=== PATIENT | male | born 1955 | race Caucasian/White ===

== ENCOUNTER 2017-11-19 22:26 | Emergency (ER) | payer OTHER ==
[~2017-11-19] VITALS: Ht 177.8 cm; Wt 110.6 kg
[2017-11-19 22:34] VITALS: BP 201/91; PULSE 84; RESP 22; TEMP 98.1; O2SAT 98
[2017-11-20] MEDS ORDERED: LISI2.5T3 PO (00:20)
[2017-11-20] MEDS ORDERED: LABE100T2 PO (00:20)
[2017-11-20 00:22] VITALS: BP 167/82; PULSE 76; RESP 18; O2SAT 97
[2017-11-20] MEDS ORDERED: DOXA1TAB35 PO (00:27)
[2017-11-20] MEDS ORDERED: LISI40TA PO (00:27)
--- NOTE | 2017-11-20 01:56 | PD ---
HPI Chief Complaint: Oral / Dental Pain or Problem Time Seen by Provider: 01:44 Travel History International Travel<30 days: No Contact w/Intl Traveler<30days: No Traveled to known affect area: No History of Present Illness HPI The patient is a 62-year-old male that states he has a dental infection and tooth #31. This is been going on for 2 weeks. He called a dentist at the dentist wanted $200 and he cannot afford that right now. He states he has aching pain in that tooth and it is a 9/10. He denies any fever. The patient is on foot tonight, he states he walked from [place]. PFS Past Medical History Cardiovascular Problems: Yes ([place]) Cerebrovascular Accident: Yes Hypertension: Yes Influenza Vaccination: No ?: Not Social History Alcohol Use: No Tobacco Use: No Substance Use: No Allergies-Medications (Allergen,Severity, Reaction): Coded Allergies: amlodipine (Verified Allergy, Severe, Hives, 11/19/17) metoprolol (Verified Allergy, Severe, Hives, 11/19/17) prednisolone (Verified Allergy, Severe, Anaphylaxis, 11/19/17) Reported Meds & Prescriptions Reported Meds & Active Scripts Active Reported Doxazosin (Doxazosin Mesylate) 2 Mg Tab 2 Mg PO DAILY Lisinopril 40 Mg Tab 40 Mg PO DAILY Labetalol (Labetalol HCl) 100 Mg Tab 100 Mg PO BID Review of Systems Except as stated in HPI: all other systems reviewed are Neg Physical Exam Narrative GENERAL: Well-nourished, well-developed patient who is sleeping when I encountered him and in slight apparent distress with his dental infection. His vital signs show blood pressure 167/82 but are otherwise normal. SKIN: Focused skin assessment warm/dry. HEAD: Normocephalic. EYES: No scleral icterus. No injection or drainage. NECK: Supple, trachea midline. No JVD or lymphadenopathy. CARDIOVASCULAR: Regular rate and rhythm without murmurs, gallops, or rubs. RESPIRATORY: Breath sounds equal bilaterally. No accessory muscle use. GASTROINTESTINAL: Abdomen soft, non-tender, nondistended. MUSCULOSKELETAL: No cyanosis, or edema. BACK: Nontender without obvious deformity. No CVA tenderness. DENTAL: Tooth #31 shows a slight chip but there is no drainable abscess associated with this tooth. No malocclusion. Data Data Last Documented VS Vital Signs Date Time Temp Pulse Resp B/P (MAP) Pulse Ox O2 Delivery O2 Flow Rate FiO2 11/20/17 00:22 76 18 167/82 (110) 97 Room Air 11/19/17 22:34 98.1 [facility] Medical Decision Making Medical Screen Exam Complete: Yes Emergency Medical Condition: Yes Medical Record Reviewed: Yes Differential Diagnosis Drainable dental abscess, non-drainable dental infection, Ángel's angina- highly unlikely Narrative Course The patient has a dental infection. He states that he gets good results with Bactrim DS for dental infections. He insist on getting this for his antibiotic. I asked him if I could write another free at [facility] antibiotic as well and he said yes. Plan: The patient will be given Keflex and Bactrim DS. He needs to follow-up with the dentist. Diagnosis Primary Impression: Dental infection Disposition: 01 DISCHARGE HOME Condition: Stable Roger Cleveland MD Nov 20, 2017 01:56
[2017-11-20] MEDS ORDERED: SULFAMETHOXAZOLE-TRIMETHOPRIM DS 800-160 MG TAB PO ONE (02:00)
[2017-11-20] MEDS ORDERED: CEPHALEXIN MONOHYDRATE 500 MG CAP PO ONE (02:00)
[2017-11-20] MEDS ORDERED: CEPH-460 PO (02:02)
[2017-11-20] MEDS ORDERED: BACT800T5 PO (02:02)
[2017-11-20] MEDS ORDERED: IBUP1TAB7 PO (02:08)
[2017-11-20] MEDS ORDERED: IBUPROFEN 800 MG TAB PO ONE (02:15)
[2017-11-20 02:51] VITALS: BP 168/91
== END 2017-11-20 02:53 | disposition home or self-care (01) ==
LOC: PHED 22:26
DX: K04.7 Periapical abscess without sinus (principal); I10 Essential (primary) hypertension; I25.2 Old myocardial infarction; Z86.73 Personal history of transient ischemic attack (TIA), and cerebral infarction without residual deficits; Z88.8 Allergy status to other drugs, medicaments and biological substances; Z79.899 Other long term (current) drug therapy
CPT/HCPCS: 99283